=== PATIENT | male | born 1970 | race Caucasian/White ===

== ENCOUNTER 2017-02-22 18:09 | Emergency (ER) | payer BC ==
[~2017-02-22 18:09] MED LIST: NORCO 5/325 TAB1 TAB PO
== END 2017-02-22 19:41 ==
LOC: EDMED 18:09
DX: S01.81XA Laceration without foreign body of other part of head, initial encounter (principal); H57.04 Mydriasis; W01.198A Fall on same level from slipping, tripping and stumbling with subsequent striking against other object, initial encounter